=== PATIENT | female | born 1940 | race Caucasian/White ===

== ENCOUNTER 2016-04-10 17:07 | Emergency (ER) | payer OTHER ==
[~2016-04-10] VITALS: Ht 154.9 cm; Wt 51.0 kg
[~2016-04-10 17:07] MED LIST: ATORVASTATIN CA20 MG PO; CALCIUM 500 MG1 EACH PO; CARBAMAZEPINE100 MG PO; CARBATROL-ER100 MG PO; CENTRUM SILVER1 EAC3 PO; ESTER-C 1,0001 EACH PO; GABAPENTIN100 MG PO; LIDOCAINE700 MG TD; LISINOPRIL5 MG PO; NORCO 10/3251 TABLET PO; NOVOLOG MI100 UNIT/4 SC; NOVOLOG PE100 UNITS/ SC; PRILOSEC OTC20 MG PO; PROTONIX40 MG PO; RANITIDINE HCL150 MG PO; ST. JOSEPH ASPI81 MG PO; TYLENOL WITH C1 EACH PO; ZANTAC150 MG PO; ZOFRAN ODT8 MG PO
[2016-04-10 17:54] LABS: HEMATOCRIT 40.3 % (36.0-46.0); MCH 31.6 PG (29.0-34.0); MCHC 33.3 G/DL (30.0-36.0); MEAN PLAT.VOLUME 8.4 uM^3 (9.5-12.4); PLATELET COUNT 255 K/uL (156-360); RBC DIS.WIDTH-CV 12.6 % (11.8-14.6); RBC DIS.WIDTH-SD 42.6 % (39-53); RED BLOOD COUNT 4.24 M/uL (3.80-5.20); WHITE BLOOD COUNT 4.9 K/uL (4.1-10.2)
[2016-04-10 18:02] LABS: CHLORIDE 102 mEq/L (99-109); POTASSIUM 3.8 mEq/L (3.7-5.4); SODIUM 139 mEq/L (136-147)
[2016-04-10 18:03] LABS: GLUCOSE 133 mg/dL (70-99)
[2016-04-10 18:05] LABS: ANION GAP 8 MEQ/L (2-14)
[2016-04-10 18:07] LABS: GFR ESTIMATE (CALCULATED) > 59 mL/min/
[2016-04-10 18:08] LABS: UREA NITROGEN (BUN) 16 mg/dL (9-23)
[2016-04-10 18:14] LABS: TROP-I INTERPRETATION NEGATIVE; TROPONIN-I < 0.01 ng/mL (0.0-0.30)
[2016-04-10 22:52] LABS: ADD MIUA? NO; BILIRUBIN NEGATIVE; BLOOD NEGATIVE; COLOR YELLOW ((YELLOW)); GLUCOSE (STRIP) NEGATIVE; KETONES NEGATIVE; LEUKOCYTES NEGATIVE; NITRITE NEGATIVE; PROTEIN (STRIP) NEGATIVE; SPECIFIC GRAVITY 1.009 (1.000-1.030); UCUL ADDED? NO; UROBILINOGEN 0.2 MG/DL (0.2-1.0)
[2016-04-10 23:33] VITALS: BP 171/89
== END 2016-04-10 23:33 | disposition home or self-care (01) ==
LOC: EME 17:07
PROVIDERS: Physician Assistant
DX: R42 Dizziness and giddiness (principal); E11.9 Type 2 diabetes mellitus without complications; I10 Essential (primary) hypertension; I25.2 Old myocardial infarction; Z95.1 Presence of aortocoronary bypass graft; Z79.4 Long term (current) use of insulin; Z79.82 Long term (current) use of aspirin
CPT/HCPCS: 70450; 71020; 80048; 81003; 84484; 85027; 93005; 99281; 99284; J7030